=== PATIENT | female | born 1935 | race Caucasian/White ===

== ENCOUNTER 2020-05-20 10:21 | Observation (INO) ==
[2020-05-20 13:59] LABS: Basophils % 0.4 % (0.0-0.8); Eosinophils # 0.1 10*3/uL (0.0-0.87); Eosinophils % 0.9 % (0.00-10.9); Hematocrit 34.5 VOL% (35.7-47.0); Hemoglobin 11.2 GM/DL (12.0-16.0); Immature Granulocytes % 0.4 %; Immature Granulocytes Absolute 0.03 #; Lymphocytes # 0.9 10*3/uL (1.4-4.0); Lymphocytes % 11.1 % (21.3-54.2); Mean Corpuscular HGB Conc 32.5 GM/DL (32-36); Mean Corpuscular Volume 93.2 FL (87-102); Mean Platelet Volume 11.7 FL (9.6-12.0); Monocytes % 14.7 % (1.7-12.7); Neutrophils % 72.5 % (38.7-73.9); Platelet Count 148 T/CUMM (130-400); Red Cell Distribution Width 12.3 % (9.3-17.3); White Blood Count 7.8 T/CUMM (4-12)
[2020-05-20 14:13] LABS: Calcium 8.8 MG/DL (8.5-10.1); Osmolality,Calculated 276.7 MOS/KG (273-304)
[2020-05-20] MEDS ORDERED: ACETAMINOPHEN 325 MG TABLET PO PRN (14:57)
[2020-05-20] MEDS ORDERED: ONDANSETRON 4 MG/2 ML VIAL IV PRN (14:57)
[2020-05-20] MEDS ORDERED: DOCUSATE SODIUM 100 MG CAPSULE PO PRN (14:57)
[2020-05-20] MEDS: traMADol 50 MG TABLET PO PRN (20:59)
[2020-05-20] MEDS ORDERED: ENOXAPARIN 40 MG/0.4 ML SYRINGE SUBCUT SCH (21:00)
[2020-05-21] MEDS ORDERED: PANTOPRAZOLE 40 MG TABLET PO SCH (09:00)
[2020-05-21 11:35] VITALS: BP 110/92
[2020-05-21] MEDS ORDERED: traMADol 50 MG TABLET PO PRN (12:36)
[2020-05-21] MEDS: traMADol 50 MG TABLET PO PRN (12:39)
[2020-05-21] MEDS ORDERED: METOPROLOL SUCCINATE XL 25 MG TABLET PO SCH (21:00)
[2020-05-21] MEDS ORDERED: EZETIMIBE 10 MG TABLET PO SCH (21:00)
[2020-05-21] MEDS ORDERED: MUPIROCIN 2% OINT 22 GM TUBE TOP SCH (21:00)
[2020-05-22] MEDS ORDERED: CALCIUM (CARBONATE) 600 MG TABLET PO SCH (08:00)
[2020-05-22] MEDS ORDERED: CHOLECALCIFEROL 1,000 UNIT TABLET PO SCH (09:00)
[2020-05-22] MEDS ORDERED: NON-FORMULARY MEDICATION (Biotin 1 mg Capsule) PO SCH (09:00)
[2020-05-22] MEDS ORDERED: SIMVASTATIN 20 MG TABLET PO SCH (21:00)
== END 2020-05-21 17:20 | disposition home or self-care (01) ==
LOC: N.ED 10:21 → N.EDINP 10:21 → SUATTDRO 14:57 → N.3E 19:32
PROVIDERS: ADMIT Internal Medicine; ATTEND Family Medicine